=== PATIENT | male | born 1995 | race Caucasian/White ===

== ENCOUNTER 2020-01-31 01:49 | Emergency (ER) | payer MEDICAID ==
[~2020-01-31] VITALS: Ht 185.4 cm; Wt 55.5 kg
[2020-01-31 01:58] VITALS: BP 128/86
--- NOTE | 2020-01-31 02:20 | NUR ---
NOTIFIED DR HECK PT IS JAMES BRADY IN HIS CAR. UPDATED PLAN OF CARE WITH PATIENT , NOTIFIED THEM OF POSSIBLE WAIT TIME , AND REASSURED HIM THAT HE WILL BE OK AND WILL BE EVALUATED SOON .
[2020-01-31] MEDS ORDERED: proCHLORperazine 10mg tablet PO ONE (03:15)
[2020-01-31] MEDS ORDERED: pantoprazole 40mg Tablet.DR PO ONE (03:15)
[2020-01-31] MEDS ORDERED: PANT-47 PO (03:19)
== END 2020-01-31 03:27 | disposition home or self-care (01) ==
LOC: ER 01:49
DX: K29.00 Acute gastritis without bleeding (principal); R05 Cough; F41.9 Anxiety disorder, unspecified; F12.90 Cannabis use, unspecified, uncomplicated; Z79.899 Other long term (current) drug therapy
CPT/HCPCS: 99283; Q0164

== ENCOUNTER 2020-05-09 05:27 | Day surgery (SDC) | payer MEDICAID ==
[2020-05-03 16:42] LABS: EOSINOPHILS # (AUTO) 0.2 X10'3 (0-0.9); EOSINOPHILS % (AUTO) 5.4 % (0-6); LYMPHOCYTES # (AUTO) 1.2 X10'3 (1.1-4.8); LYMPHOCYTES % (AUTO) 29.9 % (21-51); MEAN CORPUSCULAR HEMOGLOBIN 33.4 PG (27.0-31.0); MEAN CORPUSCULAR HGB CONC 34.2 g/dL (33.0-36.5); MEAN CORPUSCULAR VOLUME 97.6 FL (78-98); MEAN PLATELET VOLUME 9.9 FL (7.4-10.4); MONOCYTES # (AUTO) 0.4 X10'3 (0-0.9); MONOCYTES % (AUTO) 9.8 % (2-12); NEUTROPHILS # (AUTO) 2.2 X10'3 (1.8-7.7); NEUTROPHILS % (AUTO) 53.9 % (42-75); PRE OP HEMATOCRIT 48.9 % (42.0-52.0); PRE OP HEMOGLOBIN 16.7 g/dL (14.0-17.9); PRE OP PLATELET COUNT 152 X10'3 (140-440); RED CELL DISTRIBUTION WIDTH 12.9 % (11.5-14.5)
[2020-05-03 16:52] LABS: ALBUMIN 4.8 G/DL (3.4-5.0); ALBUMIN/GLOBULIN RATIO 1.5 (1.1-1.5); ALKALINE PHOSPHATASE 46 IU/L (46-116); BLOOD UREA NITROGEN 10 MG/DL (7-18); BUN/CREATININE RATIO 9.4 (5.4-32.0); CALCIUM 9.3 MG/DL (8.5-10.1); CHLORIDE 104 MMOL/L (99-107); CREATININE 1.06 MG/DL (0.60-1.10); PRE OP ALT 24 U/L (30-65); PRE OP ANION GAP 6 (8-16); PRE OP AST 19 U/L (10-37); PRE OP BILIRUB, TOTAL 0.9 MG/DL (0.0-1.0); PRE OP GLUCOSE 97 MG/DL (70-104); PRE OP POTASSIUM 4.5 MMOL/L (3.4-5.1); PRE OP SODIUM 142 MMOL/L (135-145); TOTAL CARBON DIOXIDE 31.8 MMOL/L (24-32); TOTAL PROTEIN 7.9 G/DL (6.4-8.2); eGFR 85 ML/MIN
[2020-05-09] VITALS (18 sets, daily range): BP systolic 107–130; BP diastolic 73–85
[~2020-05-09] VITALS: Ht 177.8 cm; Wt 56.7 kg
[~2020-05-09 05:27] MED LIST: OMEP20TA5 PO; SERT25TA5 PO; ringers solution, lacted 1,000 ML IV SCH
[2020-05-09] MEDS ORDERED: cefazolin/dext.iso 2gm/50ml 50 ML IV ONE (05:30)
[2020-05-09] MEDS ORDERED: famotidine 20mg tablet PO ONE (05:30)
[2020-05-09] MEDS ORDERED: LIDOcaine 1% (10mg/ml) 2ml vial ONE (06:15)
[2020-05-09] MEDS ORDERED: LIDOcaine 1% 30ml preserv. free vial ONE (06:36)
[2020-05-09] MEDS ORDERED: BUPIVAcaine/PF 2.5 mg/ml (0.25%) 30ml vial ONE (06:36)
[2020-05-09] MEDS ORDERED: midazolam 2 mg/2 ml injection ONE (07:10)
[2020-05-09] MEDS ORDERED: fentaNYL/PF 50MCG/1 ML 2ML syringe ONE (07:10)
[2020-05-09] MEDS ORDERED: dexamethasone sod phosphate 4mg/ml inj. ONE (07:11)
[2020-05-09] MEDS ORDERED: propofol inj 20 ML IV ONE (07:11)
[2020-05-09] MEDS ORDERED: LIDOcaine 2% (20mg/ml) 5ml vial ONE (07:11)
[2020-05-09] MEDS ORDERED: neostigmine methylsulfate 1 MG/ML 10ml vial ONE (07:12)
[2020-05-09] MEDS ORDERED: ondansetron/PF 4mg/2ml inj ONE (07:12)
[2020-05-09] MEDS ORDERED: glycopyrrolate 0.2mg/ml inj ONE (07:12)
[2020-05-09] MEDS ORDERED: rocuronium 10mg/ml inj IV ONE (07:12)
[2020-05-09] MEDS ORDERED: ringers solution, lacted 1,000 ML IV SCH (07:16)
[2020-05-09] MEDS ORDERED: morphine 2 MG/ML inj. syringe IV PRN (07:20)
[2020-05-09] MEDS ORDERED: fentaNYL/PF 50MCG/1 ML 2ML syringe IV PRN ×2 (07:20)
[2020-05-09] MEDS ORDERED: hydrALAZINE 20mg/ml inj. IV PRN (07:20)
[2020-05-09] MEDS ORDERED: labetalol 20mg/4ml (5mg/ml) syringe IV PRN (07:20)
[2020-05-09] MEDS ORDERED: ondansetron/PF 4mg/2ml inj IV PRN (07:20)
[2020-05-09] MEDS ORDERED: sevoflurane 250ml liquid IH ONE (07:33)
--- NOTE | 2020-05-09 09:18 | NUR ---
Received from OR via [facility], accompanied by Anesthesiologist Dr Moore and report given by Anesthesiolgist. PATIENT WAKING UP, DENIES PAIN, V/S WNL, MASK TO 10L NEUROVASCULAR CHECKS INTACT, 20G PIV RAC, SCD ON, 3 BANDAIDS TO LAP SIGHTS OF ABDOMEN CDI. LR IVF at 150cc/hr.
[2020-05-09] MEDS: morphine 4 MG/ML inj SYRINge IV PRN ×2 (09:34→10:00)
[2020-05-09] MEDS ORDERED: HYDROcodone/acetaminophen 5mg/325mg tablet PO PRN (09:35)
--- NOTE | 2020-05-09 12:05 | NUR ---
Pt transferred to PAS to encourage drinking fluids and wait for pt to be able to void. DC instructions and chart sent with patient. Report called to JAMES Mullins.
[2020-05-09] MEDS ORDERED: HYDROcodone/acetaminophen 5mg/325mg tablet PO ONE (12:20)
--- NOTE | 2020-05-09 12:45 | NUR ---
PT IS READY FOR DISCHARGE, VOID 500 CC CLEAR YELLOW URINE, UP AMB INDEP'LY, CUCA FLUIDS, IV REMOVED, TAKEN TO VEHICLE IN W/C. SENT WITH DISCHARGE INSTRUCTIONS AND PRESCRIPTION.
== END 2020-05-09 12:45 | disposition home or self-care (01) ==
LOC: PAS 05:27
PROVIDERS: ATTEND Surgery
DX: K40.20 Bilateral inguinal hernia, without obstruction or gangrene, not specified as recurrent (principal); F12.90 Cannabis use, unspecified, uncomplicated; F32.9 Major depressive disorder, single episode, unspecified; F41.9 Anxiety disorder, unspecified; Z11.59 Encounter for screening for other viral diseases; Z79.899 Other long term (current) drug therapy
CPT/HCPCS: 36415; 49650; 80053; 82948; 85025; C1781; J1100; J2001; J2250; J2270; J2405; J2704; J2710; J3010; J3490; J7120; U0003; A4215; A4618

== ENCOUNTER 2025-05-20 20:23 | Emergency (ER) | payer MEDICAID ==
[~2025-05-20] VITALS: Ht 152.4 cm; Wt 58.9 kg
[~2025-05-20 20:23] MED LIST changes: +OMEP20TA43 PO; -OMEP20TA5 PO; +SERT-432 PO; -SERT25TA5 PO; -ringers solution, lacted 1,000 ML IV SCH
--- NOTE | 2025-05-21 03:42 | Physician Documentation ---
HPI ~ General Chief Complaint: Tooth Problem Stated Complaint: TOOTH PAIN Time Seen by MD: 03:40 OK to notify your PCP?: Yes [facility] Source: patient, RN/MD, RN notes reviewed, old records Mode of Arrival: POV Exam Limitations: no limitations History of Present Illness HPI Comment BED 13 This patient is a 29 y/o male who presents to ED with chief complaint of tooth pain. Patient reports that he has had right lower molar pain on and off for the past several months. He reports that for the past few days his pain has significantly worsened, and is radiating down to the right side of his neck. No facial swelling or trouble breathing. Patient denies any allergies to antibiotics. He does have a dentist and is scheduled to see them on the of this month. Patient denies any other associated symptoms at this time. Patient denies any other alleviating or exacerbating factors. Medication Reconciliation Allergies: Coded Allergies: No Known Drug Allergies (Verified Allergy, Unknown, 05/20/25) Scheduled Amox Tr/Potassium Clavulanate 875/125 MG (Augmentin 875/125 MG), 1 TAB PO Q12H Naproxen (Naproxen), 1 TAB PO Q12H Omeprazole (Omeprazole), 1 TAB PO DAILY, (Reported) Sertraline HCl (Sertraline HCl), 1 TAB PO HS, (Reported) Past Medical History Past Medical History: Anxiety Past Surgical History: noncontributory Smoking Status: Never smoker Alcohol Use: Rarely Drug Use: marijuana Lives In: Home Review of Systems All Other Systems at this time: Reviewed and Negative Physical Exam Vital Signs: RN Vital Signs have been reviewed: Yes, Temperature: 98.9, Source: Temporal, Heart Rate: 99, Respiratory Rate: 18, BP: 115/84, Pulse Oximetry: 100, Weight: 58.940 Oxygen Flow Rate: 0 Physical Exam General: The patient is well developed, well nourished, nontoxic appearing and is in no acute distress. Skin: [place], warm and dry with no rashes. HEENT: Dental carries diffusely. Head was normocephalic and atraumatic. Eyes - pupils equal, round, reactive to light and accommodation. Extraocular movements were intact. Conjunctivae were nonicteric. The mouth and oropharynx were clear with moist mucous membranes. There were no pharyngeal exudates or erythema. Neck: Supple and nontender. There was no jugular venous distention, lymphadenopathy, thyromegaly or masses. Chest: Clear to auscultation bilaterally without wheezes, rales or rhonchi. No accessory muscle use. No dullness to percussion. Heart: Rate regular and rhythmic. S1, S2. No murmurs. Palpation of the chest wall was normal. No rubs or thrills. Abdomen: Soft, nontender and nondistended. Positive bowel sounds. No guarding or rebound. No hepatosplenomegaly or palpable masses. Extremities: No cyanosis, clubbing or edema. The patient moves all extremities. Pulses were equal and symmetric. Neurologic: Motor and sensation grossly intact. A & O x4. Psychologic: The patient was oriented to person, place and time. Progress Results/Orders Reviewed/noted all lab results: Yes Results/Orders Completed Orders - MIKHAIL THOMPSON MD Amox Tr/Potassium Clavulanate (Augmentin (05/21/25 03:50) Naproxen Tablet (Naprosyn Tablet) (05/21/25 03:50) Medications Received in ER Medications (Trade) Dose Ordered Sig/Shakira Route PRN Reason Start Time Stop Time Status Last Admin Dose Admin (Augmentin 875-125mg tablet) 1 tab ONCE ONCE PO 05/21/25 03:50 05/21/25 03:51 DC 05/21/25 03:54 1 TAB (Naprosyn tablet) 500 mg ONCE ONCE PO 05/21/25 03:50 05/21/25 03:51 DC 05/21/25 03:54 500 MG Vital Signs 05/20/25 05/21/25 20:59 04:00 Temp 98.9 98.6 Pulse 99 96 Resp 18 16 B/P (MAP) 115/84 116/82 Pulse Ox 100 99 O2 Flow Rate 0 Re-Evaluation Re-Evaluation : Re-Evaluation: Improved Progress Patient was seen and examined. Patient is given reassurance. Patient was found to have dental pain developed carry right lower molar. Patient received Augmentin naproxen and a prescription for the same. Patient was encouraged to follow up with a dentist as scheduled. Patient was then discharged. Medical Decision Making Additional info obtained from: old records Differential Dx:Considerations: Include: Alveolar fracture, Alveolar osteitis, Facial Cellulitis, Periapical abscess, Peridontal abscess, Post-extraction bleeding, Pulpitis, Tooth avulsion, Tooth eruption, Tooth Fracture, Trigeminal neuralgia, Tooth subluxation, Other Departure Time of Disposition: 03:51 Disposition: 01 HOME / SELF CARE / HOMELESS Impression: Primary Impression: Toothache Additional Impressions: Dental caries Dental abscess Condition: Stable Discharge Instructions: Dental Pain Additional Instructions: Take antibiotics as prescribed. Follow up with your dentist as scheduled. Referrals: NO PRIMARY CARE PROVIDER (PCP) Prescriptions Amox Tr/Potassium Clavulanate 875/125 MG (Augmentin 875/125 MG) 875 Mg-125 Mg Tablet 1 TAB PO Q12H for 14 Days, #28 TAB Prov: MIKHAIL THOMPSON MD 05/21/25 Naproxen (Naproxen) 500 Mg Tablet 1 TAB PO Q12H, #20 TAB Prov: MIKHAIL THOMPSON MD 05/21/25 Education Educated: Patient Educated regarding: diagnosis Signature Scribe Signature: Scribed for Mikhail Thompson MD by Mary Kay King. 05/21/25 03:52 Attestation: The note accurately reflects work and decisions made by me.Mikhail Thompson MD 05/21/25 03:42 MIKHAIL THOMPSON MD May 21, 2025 03:42
[2025-05-21] MEDS ORDERED: AMOX-580 PO (03:51)
[2025-05-21] MEDS ORDERED: NAPR-56 PO (03:51)
[2025-05-21] MEDS: amox tr/potassium clavulanate 875/125mg TAB PO ONE (03:54)
[2025-05-21 04:00] VITALS: BP 116/82; PULSE 96; RESP 16; TEMP 98.6; O2SAT 99
== END 2025-05-21 04:01 | disposition home or self-care (01) ==
LOC: ER 20:24
DX: K04.7 Periapical abscess without sinus (principal); K02.9 Dental caries, unspecified; F12.90 Cannabis use, unspecified, uncomplicated
CPT/HCPCS: 99283